=== PATIENT | male | born 1955 ===

== ENCOUNTER 2024-08-07 20:20 | Observation (INO) ==
[2024-08-07] MEDS: SODIUM CHLORIDE 0.9% 1,000 ML IV ONE (20:50)
[2024-08-07 20:57] LABS: iSTAT Art Bld Gas Base Excess 0.0 meg/L (-9-1.8)
--- NOTE | 2024-08-07 21:11 | Emergency Department Note ---
History of Present Illness General Chief complaint: Trauma Stated complaint: FALL, ON BLOOD THINNERS, HYPOTENSIVE Time Seen by Provider: 08/07/24 20:21 History of Present Illness Provider complaint: Fall on Eliquis 69-year-old male presents to the emergency department via EMS for fall on Eliquis. Patient was hypotensive. Patient has dementia and does not remember how he fell. Patient is reporting no pain. Home Medications Medication Instructions Recorded Confirmed Type folic acid 1 mg PO DAILY 06/11/24 08/07/24 History metformin 500 mg tablet 500 mg PO BID 06/11/24 08/07/24 History multivitamin 1 cap PO DAILY 06/11/24 08/07/24 History apixaban 5 mg tablet (Eliquis) 5 mg PO BID #60 tabs 07/14/24 08/07/24 Rx aspirin 81 mg tablet,delayed 81 mg PO QAM #30 tabs 07/14/24 08/07/24 Rx release atorvastatin 10 mg tablet 10 mg PO HS #30 tabs 07/14/24 08/07/24 Rx budesonide 0.5 mg/2 mL suspension 0.5 mg (2 mL) NEB BIDR #60 mL 07/14/24 08/07/24 Rx for nebulization ferrous sulfate 325 mg (65 mg 325 mg PO DAILY #30 tabs 07/14/24 08/07/24 Rx iron) tablet (Iron (ferrous sulfate)) formoterol fumarate 20 mcg/2 mL 20 mcg (2 mL) NEB BIDR #60 mL 07/14/24 08/07/24 Rx solution for nebulization (Perforomist) levofloxacin 750 mg tablet 750 mg PO DAILY@1100 #14 tabs 07/14/24 08/07/24 Rx magnesium oxide 400 mg (241.3 mg 400 mg PO QAM #30 tabs 07/14/24 08/07/24 Rx magnesium) tablet metoprolol succinate 25 mg 12.5 mg (1/2 x 25 mg) PO QAM #15 07/14/24 08/07/24 Rx tablet,extended release 24 hr tabs nicotine 7 mg/24 hr daily 1 patch transdermal QAM #14 ea 07/14/24 08/07/24 Rx transdermal patch pantoprazole 40 mg tablet,delayed 40 mg PO QAM #30 tabs 07/14/24 08/07/24 Rx release quetiapine 25 mg tablet 25 mg PO TID #90 tabs 07/14/24 08/07/24 Rx thiamine HCl (vitamin B1) 100 mg 100 mg PO DAILY #30 caps 07/14/24 08/07/24 Rx capsule Allergies Allergy/AdvReac Type Severity Reaction Status Date / Time olanzapine [From Zyprexa] Allergy Rash (Fine Verified 08/07/24 22:40 red, pruritic rash on back) Past Med/Surg History Problem List (Updated 08/07/24 @ 22:41 by Toi Nicholas MD) Fall (Acute) Pneumonia (Acute) Hypoxia (Acute) Pulmonary cavitary lesion Necrotizing pneumonia Pneumothorax on right AMS (altered mental status) Confusion Hypokalemia Acute exacerbation of chronic obstructive pulmonary disease (COPD) Septic shock Other secondary pulmonary hypertension Endotracheally intubated Acute respiratory failure with hypoxia Multifocal pneumonia Acute DVT (deep venous thrombosis) Pulmonary embolism Elevated hemidiaphragm COPD with emphysema Acute metabolic encephalopathy Atrial fibrillation with RVR Tobacco use disorder Pneumonia Sepsis Medical History Short-term memory loss Hypertension Prediabetes Social History Smoking Status: Former smoker Tobacco Type: Cigarettes Cigarettes Per Day: 1.5 packs/day; Hx Alcohol Use: Yes Alcohol type: hard liquor Hx Substance Use: No Preferred Language: [place] Communication Ability: Unable Director Of Physical Security Required: No Beliefs That Will Affect Care: Spiritual Current Living Situation: Spouse Feels Safe at Home: Yes Assistive Devices: None Physical Exam Vital Signs Vital Signs - 24 hr 08/07/24 20:27 08/07/24 20:27 08/07/24 20:29 Temperature 36.8 C 36.8 C Temperature Source Oral Pulse Rate 96 H 96 H 91 H Pulse Rate [Apical] Pulse Rate from SpO2 Sensor Pulse Strength [Bilateral] Normal Respiratory Rate 24 24 Respiratory Effort / Characteristics Respiratory Depth Blood Pressure 95/77 L 95/77 L Blood Pressure [Right Arm] Blood Pressure Mean 83 Blood Pressure Mean [Right Arm] Pulse Oximetry 96 95 Oxygen Delivery Method Room Air Room Air Oxygen Flow Rate 0 Sepsis Recent Fever Within 48 Hours No Sepsis New/Unexplained Change in Mental Status No Sepsis Action Taken by Nursing Physician Notified Oxygen Flow Rate - Titration Pulse Oximetry Post Tiitration 08/07/24 20:30 08/07/24 20:46 08/07/24 21:01 Temperature Temperature Source Pulse Rate 95 H Pulse Rate [Apical] Pulse Rate from SpO2 Sensor Pulse Strength [Bilateral] Respiratory Rate 22 Respiratory Effort / Characteristics Respiratory Depth Blood Pressure 94/58 L 104/61 Blood Pressure [Right Arm] Blood Pressure Mean 68 88 Blood Pressure Mean [Right Arm] Pulse Oximetry 95 100 Oxygen Delivery Method Nasal Cannula Nasal Cannula Oxygen Flow Rate 0 2 Sepsis Recent Fever Within 48 Hours Sepsis New/Unexplained Change in Mental Status Sepsis Action Taken by Nursing Oxygen Flow Rate - Titration 2 Pulse Oximetry Post Tiitration 100 08/07/24 21:33 08/07/24 22:00 Temperature Temperature Source Pulse Rate 87 Pulse Rate [Apical] 76 Pulse Rate from SpO2 Sensor 88 Pulse Strength [Bilateral] Respiratory Rate 23 20 Respiratory Effort / Characteristics Non-Labored Spontaneous Respiratory Depth Normal Blood Pressure 95/73 L Blood Pressure [Right Arm] 115/72 Blood Pressure Mean 80 Blood Pressure Mean [Right Arm] 86 Pulse Oximetry 100 100 Oxygen Delivery Method Nasal Cannula Nasal Cannula Oxygen Flow Rate 2 2 Sepsis Recent Fever Within 48 Hours Sepsis New/Unexplained Change in Mental Status Sepsis Action Taken by Nursing Oxygen Flow Rate - Titration Pulse Oximetry Post Tiitration Primary Survey Airway: Intact Breathing: Diminished breath sounds bilaterally. Circulation: Skin warm, distal pulses 2+, capillary refill less than 2 seconds Disability Pupils: Equal and reactive to light, 2 mm, brisk GCS: 14, E = 4 V=4 M= 6 Motor Function: Moves all extremities. Sensory: No deficits Secondary Survey GEN: Ill-appearing. HEAD: Normocephallic atruamatic EYES: Pupils round reactive to light, conjunctiva clear, extraocular movements intact, no raccoons eyes ENT: no burr's sign, nares patent, oropharynx clear NECK: No JVD, midline trachea, no cervical spine tenderness HEART: Regular rate and rhythm LUNGS: Diminished breath sounds bilaterally. CHEST: Chest wall non-tender, no bruising/deformity ABD: soft, non-tender, no rebound or guarding, MUSC: Pelvis stable. NEURO: CNII-XII grossly intact, no sensory deficits Procedures FAST Exam FAST Exam 1: Fluid in Morison's pouch: No Fluid in Splenorenal Junction: No Fluid around bladder, Transverse view: No Fluid around bladder, Sagittal view: No Fluid in Pericardial Sac: No Gross Wall Motion Abnormality: No Study normal for this patient: Yes Additional Comments: E-FAST showed no lung sliding on the right. Barcode sign on the right. Lung sliding on the left. Seashore sign on the left. Course Course 2009:Trauma alert activated. 2020: The patient was evaluated in room B1. A complete history and physical exam was performed Cardiac monitoring: An order was placed for continuous cardiac monitoring. The monitor shows a rate of 90 with sinus rhythm interpreted by me Patient hypotensive. IV fluids ordered for the patient. Diminished breath sounds bilaterally. Bedside ultrasound shows barcode sign on the right. Patient hypoxic on room air. Supplemental oxygen was applied via nasal cannula. Chest x-ray shows a bleb/cavitary lesion of the right. When compared to previous chest x-ray this is also present from July 10, 2024. This is not thought to be a pneumothorax at the time but will obtain CT. Given the patient's hypotensive will obtain CT rob scan. 2041: Patient's i-STAT shows elevated creatinine. Will switch to CT scans without contrast. 2046: CT of the head viewed by me shows no ICH. CT of the chest viewed by me shows large right-sided bleb, not definite pneumothorax when I viewed the patient's CTs and CT control room. There does appear to be right-sided pneumonia on the CT. CT abdomen pelvis did not show any free fluid when I reviewed the CT. 2237: Vital signs stable on supplemental oxygen. Imaging shows no acute traumatic injury. Imaging does show pneumonia. Labs show white blood cell count of 12.81 ABG is unremarkable creatinine 1.67 up from 0.72 at the beginning of the month. Patient being treated with IV fluids and blood pressure improving with IV fluids. Patient treated with broad-spectrum antibiotics Zosyn and vancomycin. [facility]. Administ[facility] Medications Discontinued Medications Sodium Chloride (Nss) 1,000 mls @ 999 mls/hr IV .Q1H1M ONE Stop: 08/07/24 22:07 Last Infusion: 08/07/24 21:59 Dose: Infused Documented By: Admin: 08/07/24 20:50 Dose: 999 mls/hr Documented By: JONATHAN Piperacillin Sod/Tazobactam Sod (Zosyn) 4.5 gm in 120 mls @ 240 mls/hr IV NOW ONE Stop: 08/07/24 22:15 Last Admin: 08/07/24 22:09 Dose: 240 mls/hr Documented By: NBA Critical Care Time Critical Care Time: Yes Total Critical Care Time: 40 I have personally spent greater than 40 minutes of critical care time in the direct management of this patient. This includes bedside care, interpretation of diagnostic studies, and testing, discussion with consultants, patient, and family members, and other required patient management activities. This 40 minutes is in excess of all separately billable procedures. Medical Decision Making Laboratory Data Attestation: I reviewed the patient's lab results. 08/07/24 20:35 08/07/24 20:35 Lab Results 08/07/24 08/07/24 08/07/24 Range/Units 20:35 20:45 21:30 WBC 12.81 H (4.8-10.8) K/ul RBC 4.02 L (4.70-6.10) M/uL Hgb 12.2 L (14.0-18.0) g/dl POC Hgb 11.6 L (14.0-18.0) g/dl Hct 37.0 L (42.0-52.0) % POC Hct 34 L (42-52) % MCV 92.0 (80.0-100.0) fL MCH 30.3 (25.0-34.0) pg MCHC 33.0 (32.0-36.0) g/dL RDW Std Deviation 48.3 H (36.4-46.3) fL RDW Coeff of Johnny 14.3 (11.5-14.5) % Plt Count 226 (130-400) K/uL MPV 9.8 (9.4-12.4) fL Immature Gran % (Auto) 0.4 % Neut % (Auto) 82.3 % Lymph % (Auto) 10.8 % Whitley % (Auto) 5.5 % Eos % (Auto) 0.5 % Baso % (Auto) 0.5 % Neut # (Auto) 10.55 H (1.40-6.50) K/uL Lymph # (Auto) 1.38 (1.20-3.40) K/uL Whitley # (Auto) 0.70 H (0.11-0.59) K/uL Eos # (Auto) 0.06 (0.00-0.50) K/uL Baso # (Auto) 0.07 (0.00-0.20) K/uL Immature Gran # (Auto) 0.05 (0.01-0.20) K/uL PT 12.0 (9.0-12.0) Seconds INR 1.1 (0.9-1.1) APTT 28 (21-31) Seconds PTT Ratio 1.0 POC pH 7.41 (7.35-7.45) POC pCO2 38 (35-46) mmHg POC pO2 120 H (80-95) mmHg POC HCO3 24 (19-24) maria eugenia/L POC Total CO2 25 (24-31) mmol/L POC Base Excess 0.0 (-9-1.8) maria eugenia/L POC ABG O2 Sat 99.0 H (90-95) % POC Sodium 137 (135-144) mmol/L Sodium 137 (136-145) mmol/L POC Potassium 3.9 (3.3-5.0) mmol/L Potassium 4.1 (3.5-5.1) mmol/L Chloride 99 (98-107) mmol/L Carbon Dioxide 27 (21-32) mmol/L Anion Gap 11 (3-11) BUN 29 H (6-23) mg/dl Creatinine 1.67 H (0.6-1.4) mg/dl Est Cr Clr Drug Dosing 39.0 ml/min eGFR 43.49 BUN/Creatinine Ratio 17.4 (10-20) Glucose 100 H (70-99(Fasting)) mg/dl Lactate 1.4 (0.4-2.0) mmol/L Calcium 9.3 (8.6-10.3) mg/dl Total Bilirubin 1.1 H (0.2-1.0) mg/dl AST 14 (13-39) U/L ALT 6 L (7-52) U/L Alkaline Phosphatase 52 (34-104) U/L Ammonia 18.0 (18-72) umol/L Total Creatine Kinase 22 L (30-223) U/L Troponin I High Sens 8.1 (0-20) pg/ml Total Protein 7.1 (6.0-8.3) gm/dl Albumin 3.7 (3.4-5.0) gm/dl Globulin 3.4 (2.5-4.0) gm/dl Albumin/Globulin Ratio 1.1 (0.9-2) Lipase 12 (11-82) U/L Blood Type A Positive Antibody Screen NEGATIVE Imaging Data Attestation: I personally reviewed and interpreted this imaging study as follows: My Impression: Chest x-ray shows a bleb/cavitary lesion of the right. When compared to previous chest x-ray this is also present from July 10, 2024. CT of the head viewed by nv shows no ICH. CT of the chest viewed by nv shows large right-sided bleb, not definite pneumothorax when I viewed the patient's CTs and CT control room. There does appear to be right-sided pneumonia on the CT. CT abdomen pelvis did not show any free fluid when I reviewed the CT. Radiologist's Impression: Chest X-Ray 08/07/24 20:27 Exam(s): XR CXR 1 VIEW EXAM: XR Chest, 1 View CLINICAL HISTORY: Reason for exam: Trauma. TECHNIQUE: Frontal view of the chest. COMPARISON: Chest radiograph on 07/22/2024 FINDINGS: Hardware: None. Lungs/pleura: Large bulla in the right upper chest. Adjacent atelectasis or scarring. Opacities in the lower lungs. No pleural effusion or pneumothorax. Heart/mediastinum: Normal. No cardiomegaly. Soft tissues: Unremarkable. Bones: No acute fracture. Upper abdomen: Normal. IMPRESSION: 1. Large bulla in the right upper chest. Adjacent atelectasis or scarring. 2. Opacities in the lower lungs, concerning for atelectasis versus infectious/inflammatory process. Electronically signed by: Cristobal Espinosa M.D. 08/07/24 22:24 PM Pelvis X-Ray 08/07/24 20:27 Exam(s): XR PELVIS, 1-2 views EXAM: XR Pelvis, 1 or 2 Views CLINICAL HISTORY: Reason for exam: Trauma. TECHNIQUE: Frontal view of the pelvis. COMPARISON: None FINDINGS: Bones/joints: No displaced fracture or dislocation identified. Mild degenerative changes of the hips. Degenerative changes of the lower lumbar spine. No bony lesion. Soft tissues: Normal. No radiopaque foreign body identified. IMPRESSION: No displaced fracture or dislocation identified. Electronically signed by: Cristobal Espinosa M.D. 08/07/24 22:[address] 08/07/24 20:28 Exam(s): CT C SPINE EXAM: CT Cervical Spine Without Intravenous Contrast CLINICAL HISTORY: Reason for exam: Trauma. TECHNIQUE: Axial computed tomography images of the cervical spine without intravenous contrast. CTDI is 7.43 mGy and DLP is 1680.19 mGy-cm. Automated exposure control was utilized for the study. A dose lowering technique was utilized adhering to the principles of ALARA. COMPARISON: None FINDINGS: Bones: Normal alignment. No acute fracture or bony lesion. Old fracture deformity of the T1 spinous process. Disc spaces: No subluxation. Degenerative changes of the spine. Soft tissues: Normal. Other: Small amount of fluid in the right mastoid air cells. Atherosclerotic changes of the vasculature. Please see accompanying CT chest for further details. IMPRESSION: No acute traumatic abnormality in the cervical spine. Electronically signed by: Cristobal Espinosa M.D. 08/07/24 21:[address] 08/07/24 20:28 Exam(s): CT HEAD Without Contrast EXAM: CT Head Without Intravenous Contrast CLINICAL HISTORY: Reason for exam: trauma. TECHNIQUE: Axial computed tomography images of the head/brain without intravenous contrast. CTDI is 7.43 mGy and DLP is 1680.19 mGy-cm. Automated exposure control was utilized for the study. A dose lowering technique was utilized adhering to the principles of ALARA. COMPARISON: CT head on 06/11/2024. MRI brain on 06/12/2024. FINDINGS: Brain: No acute infarct or hemorrhage identified. No extra-axial fluid collection. No mass effect or midline shift. Scattered areas of hypoattenuation in the supratentorial white matter likely represent chronic small vessel ischemic changes. Ventricles and sulci: Prominence of the ventricles and sulci is likely secondary to cerebral volume loss. Bones: Normal. No bony lesion or acute fracture. Subcutaneous tissues: Normal. Sinuses: Normal. No air-fluid levels or mucosal thickening. Mastoid air cells: Normal. Orbits: Grossly unremarkable. Other: Atherosclerotic calcifications in the intracranial vasculature. IMPRESSION: 1. No acute intracranial abnormality. 2. Chronic small vessel ischemic changes and cerebral volume loss. Electronically signed by: Cristobal Espinosa M.D. 08/07/24 21:33 PM Abdomen/Pelvis CT 08/07/24 20:42 Exam(s): CT ABDOMEN + PELVIS Without Contrast EXAM: CT Abdomen and Pelvis Without Intravenous Contrast CLINICAL HISTORY: Reason for exam: trauma. TECHNIQUE: Axial computed tomography images of the abdomen and pelvis without intravenous contrast. CTDI is 7.43 mGy and DLP is 1680.19 mGy-cm. Automated exposure control was utilized for the study. A dose lowering technique was utilized adhering to the principles of ALARA. COMPARISON: None FINDINGS: Lung bases: Please see accompanying CT chest for further details. Mediastinum: Large hiatal hernia containing the stomach and portions of small bowel and colon. ABDOMEN: Liver: Unremarkable. Gallbladder and bile ducts: Cholelithiasis. No ductal dilation. Pancreas: Unremarkable. No ductal dilation. Spleen: Unremarkable. No splenomegaly. Adrenals: Unremarkable. No mass. Kidneys and ureters: Unremarkable. No hydronephrosis or obstructing ureteral stone. Stomach and bowel: Unremarkable. No mucosal thickening. No bowel obstruction or inflammation. PELVIS: Appendix: Normal appendix. Bladder: Unremarkable. No stones. Reproductive: Calcifications in the prostate. ABDOMEN and PELVIS: Intraperitoneal space: Unremarkable. No free air. No significant fluid collection. Bones/joints: Degenerative changes of the spine. No acute fracture. No dislocation. Soft tissues: Unremarkable. Vasculature: Atherosclerotic changes of the vasculature. No abdominal aortic aneurysm. Lymph nodes: Unremarkable. No enlarged lymph nodes. IMPRESSION: 1. Cholelithiasis. 2. Large hiatal hernia containing the stomach and portions of small bowel and colon. 3. No acute traumatic abnormality identified. Electronically signed by: Cristobal Espinosa M.D. 08/07/24 21:[address] 08/07/24 20:42 Exam(s): CT CHEST Without Contrast EXAM: CT Chest Without Intravenous Contrast CLINICAL HISTORY: Reason for exam: trauma. TECHNIQUE: Axial computed tomography images of the chest without intravenous contrast. CTDI is 7.43 mGy and DLP is 1680.19 mGy-cm. Automated exposure control was utilized for the study. A dose lowering technique was utilized adhering to the principles of ALARA. COMPARISON: CT chest on 07/22/2024 FINDINGS: Lungs: Patchy ground-glass opacities and reticulonodular densities in the left lung and patchy ground-glass opacities and densities in the right lung, concerning for infectious/inflammatory process. Emphysematous changes with large bulla in the right lung. Pleural space: Unremarkable. No significant effusion. No pneumothorax. Heart: Coronary artery calcifications. No cardiomegaly. No significant pericardial effusion. Mediastinum: Large hiatal hernia containing the entire stomach and portions of small bowel and colon. Nonspecific mildly prominent mediastinal lymph nodes. Bones/joints: Degenerative changes of the spine. No acute fracture. Soft tissues: Unremarkable. Vasculature: Atherosclerotic changes in the aorta. No aortic aneurysm. Lymph nodes: See above. IMPRESSION: 1. Patchy ground-glass opacities and reticulonodular densities in the left lung and patchy ground-glass opacities and densities in the right lung, concerning for infectious/inflammatory process. 2. Large hiatal hernia containing the entire stomach and portions of small bowel and colon. 3. Emphysematous changes with large bulla in the right lung. 4. No definite acute traumatic abnormality. Electronically signed by: Cristobal Espinosa M.D. 08/07/24 21:26 PM ECG Data Attestation: I personally reviewed and interpreted this ECG as follows: Rate (beats per minute): 91 Rhythm: + normal sinus ECG Intervals/blocks: + Normal QRS, + Normal MO and + Normal QT-c ECG ST segments: + Normal ST segments MDM Narrative 2009:Trauma alert activated. 2020: The patient was evaluated in room B1. A complete history and physical exam was performed Cardiac monitoring: An order was placed for continuous cardiac monitoring. The monitor shows a rate of 90 with sinus rhythm interpreted by me Patient hypotensive. IV fluids ordered for the patient. Diminished breath sounds bilaterally. Bedside ultrasound shows barcode sign on the right. Patient hypoxic on room air. Supplemental oxygen was applied via nasal cannula. Chest x-ray shows a bleb/cavitary lesion of the right. When compared to previous chest x-ray this is also present from July 10, 2024. This is not thought to be a pneumothorax at the time but will obtain CT. Given the patient's hypotensive will obtain CT rob scan. 2041: Patient's i-STAT shows elevated creatinine. Will switch to CT scans without contrast. 2046: CT of the head viewed by nv shows no ICH. CT of the chest viewed by nv shows large right-sided bleb, not definite pneumothorax when I viewed the patient's CTs and CT control room. There does appear to be right-sided pneumonia on the CT. CT abdomen pelvis did not show any free fluid when I reviewed the CT. 2237: Vital signs stable on supplemental oxygen. Imaging shows no acute traumatic injury. Imaging does show pneumonia. Labs show white blood cell count of 12.81 ABG is unremarkable creatinine 1.67 up from 0.72 at the beginning of the month. Patient being treated with IV fluids and blood pressure improving with IV fluids. Patient treated with broad-spectrum antibiotics Zosyn and vancomycin. Patient be admitted to the [facility] hospitalist team. Impression & Plan Hypoxia, Pneumonia, Fall Discharge Plan Visit Data Chief Complaint: Trauma Stated Complaint: FALL, ON BLOOD THINNERS, HYPOTENSIVE ED Provider: Toi Nicholas Discharge Problem: Hypoxia, Pneumonia, Fall Patient Disposition: Admitted As Inpatient Condition: Serious Forms Stand Alone Forms: My [facility] Prescriptions Prescriptions: No Action folic acid tablet 1 mg PO DAILY multivitamin Capsule 1 cap PO DAILY metformin 500 mg Tablet 500 mg PO BID levofloxacin 750 mg Tablet 750 mg PO DAILY@1100 Qty: 14 0RF formoterol fumarate [Perforomist] 20 mcg/2 mL Solution For Nebulization 20 mcg NEB BIDR Qty: 60 0RF nicotine 7 mg/24 hr Patch 24 Hour 1 patch transdermal QAM Qty: 14 0RF Eliquis 5 mg Tablet 5 mg PO BID Qty: 60 0RF quetiapine 25 mg Tablet 25 mg PO TID Qty: 90 0RF aspirin 81 mg Tablet,Delayed Release (Dr/Ec) 81 mg PO QAM Qty: 30 0RF magnesium oxide 400 mg (241.3 mg magnesium) Tablet 400 mg PO QAM Qty: 30 0RF pantoprazole 40 mg Tablet,Delayed Release (Dr/Ec) 40 mg PO QAM Qty: 30 0RF budesonide 0.5 mg/2 mL Suspension For Nebulization 0.5 mg NEB BIDR Qty: 60 0RF thiamine HCl (vitamin B1) 100 mg capsule 100 mg PO DAILY Qty: 30 0RF atorvastatin 10 mg tablet 10 mg PO HS Qty: 30 0RF ferrous sulfate [Iron (ferrous sulfate)] 325 mg (65 mg iron) Tablet 325 mg PO DAILY Qty: 30 0RF metoprolol succinate 25 mg tablet extended release 24 hr 12.5 mg PO QAM Qty: 15 0RF Referrals Referrals: Yariel Morales DO [Primary Care Provider] -
[2024-08-07 21:15] LABS: Alanine Aminotransferase 6.0 U/L (7-52); Albumin Globulin Ratio 1.1 (0.9-2); Alkaline Phosphatase 52.0 U/L (34-104); Anion Gap 11.0 (3-11); Bilirubin,Total 1.1 mg/dl (0.2-1.0); Blood Urea Nitrogen 29.0 mg/dl (6-23); Calcium 9.3 mg/dl (8.6-10.3); Carbon Dioxide 27.0 mmol/L (21-32); Chloride 99.0 mmol/L (98-107); Creatine Kinase 22.0 U/L (30-223); Creatinine Clr Calc Pharmacy 39.0 ml/min; Globulin 3.4 gm/dl (2.5-4.0); Glucose 100.0 mg/dl (70-99(Fasting)); Hematocrit (blood only) 37.0 % (42.0-52.0); Hemoglobin 12.2 g/dl (14.0-18.0); Immature Granulocytes # (auto) 0.05 K/uL (0.01-0.20); Immature Granulocytes % (auto) 0.4 %; Lipase 12.0 U/L (11-82); Mean Corpuscular Hemoglobin 30.3 pg (25.0-34.0); Mean Corpuscular Volume 92.0 fL (80.0-100.0); Platelet Count 226 K/uL (130-400); Potassium 4.1 mmol/L (3.5-5.1); RDW Standard Deviation 48.3 fL (36.4-46.3); Red Blood Count 4.02 M/uL (4.70-6.10); Sodium 137.0 mmol/L (136-145); Total Protein 7.1 gm/dl (6.0-8.3); White Blood Count 12.81 K/ul (4.8-10.8)
--- NOTE | 2024-08-07 21:28 | CT Scan Report ---
Exam(s): CT CHEST Without Contrast EXAM: CT Chest Without Intravenous Contrast CLINICAL HISTORY: Reason for exam: trauma. TECHNIQUE: Axial computed tomography images of the chest without intravenous contrast. CTDI is 7.43 mGy and DLP is 1680.19 mGy-cm. Automated exposure control was utilized for the study. A dose lowering technique was utilized adhering to the principles of ALARA. COMPARISON: CT chest on 07/22/2024 FINDINGS: Lungs: Patchy ground-glass opacities and reticulonodular densities in the left lung and patchy ground-glass opacities and densities in the right lung, concerning for infectious/inflammatory process. Emphysematous changes with large bulla in the right lung. Pleural space: Unremarkable. No significant effusion. No pneumothorax. Heart: Coronary artery calcifications. No cardiomegaly. No significant pericardial effusion. Mediastinum: Large hiatal hernia containing the entire stomach and portions of small bowel and colon. Nonspecific mildly prominent mediastinal lymph nodes. Bones/joints: Degenerative changes of the spine. No acute fracture. Soft tissues: Unremarkable. Vasculature: Atherosclerotic changes in the aorta. No aortic aneurysm. Lymph nodes: See above. IMPRESSION: 1. Patchy ground-glass opacities and reticulonodular densities in the left lung and patchy ground-glass opacities and densities in the right lung, concerning for infectious/inflammatory process. 2. Large hiatal hernia containing the entire stomach and portions of small bowel and colon. 3. Emphysematous changes with large bulla in the right lung. 4. No definite acute traumatic abnormality. Electronically signed by: Cristobal Espinosa M.D. 08/07/24 21:26 PM
--- NOTE | 2024-08-07 21:32 | CT Scan Report ---
Exam(s): CT ABDOMEN + PELVIS Without Contrast EXAM: CT Abdomen and Pelvis Without Intravenous Contrast CLINICAL HISTORY: Reason for exam: trauma. TECHNIQUE: Axial computed tomography images of the abdomen and pelvis without intravenous contrast. CTDI is 7.43 mGy and DLP is 1680.19 mGy-cm. Automated exposure control was utilized for the study. A dose lowering technique was utilized adhering to the principles of ALARA. COMPARISON: None FINDINGS: Lung bases: Please see accompanying CT chest for further details. Mediastinum: Large hiatal hernia containing the stomach and portions of small bowel and colon. ABDOMEN: Liver: Unremarkable. Gallbladder and bile ducts: Cholelithiasis. No ductal dilation. Pancreas: Unremarkable. No ductal dilation. Spleen: Unremarkable. No splenomegaly. Adrenals: Unremarkable. No mass. Kidneys and ureters: Unremarkable. No hydronephrosis or obstructing ureteral stone. Stomach and bowel: Unremarkable. No mucosal thickening. No bowel obstruction or inflammation. PELVIS: Appendix: Normal appendix. Bladder: Unremarkable. No stones. Reproductive: Calcifications in the prostate. ABDOMEN and PELVIS: Intraperitoneal space: Unremarkable. No free air. No significant fluid collection. Bones/joints: Degenerative changes of the spine. No acute fracture. No dislocation. Soft tissues: Unremarkable. Vasculature: Atherosclerotic changes of the vasculature. No abdominal aortic aneurysm. Lymph nodes: Unremarkable. No enlarged lymph nodes. IMPRESSION: 1. Cholelithiasis. 2. Large hiatal hernia containing the stomach and portions of small bowel and colon. 3. No acute traumatic abnormality identified. Electronically signed by: Cristobal Espinosa M.D. 08/07/24 21:31 PM
--- NOTE | 2024-08-07 21:34 | CT Scan Report ---
Exam(s): CT HEAD Without Contrast EXAM: CT Head Without Intravenous Contrast CLINICAL HISTORY: Reason for exam: trauma. TECHNIQUE: Axial computed tomography images of the head/brain without intravenous contrast. CTDI is 7.43 mGy and DLP is 1680.19 mGy-cm. Automated exposure control was utilized for the study. A dose lowering technique was utilized adhering to the principles of ALARA. COMPARISON: CT head on 06/11/2024. MRI brain on 06/12/2024. FINDINGS: Brain: No acute infarct or hemorrhage identified. No extra-axial fluid collection. No mass effect or midline shift. Scattered areas of hypoattenuation in the supratentorial white matter likely represent chronic small vessel ischemic changes. Ventricles and sulci: Prominence of the ventricles and sulci is likely secondary to cerebral volume loss. Bones: Normal. No bony lesion or acute fracture. Subcutaneous tissues: Normal. Sinuses: Normal. No air-fluid levels or mucosal thickening. Mastoid air cells: Normal. Orbits: Grossly unremarkable. Other: Atherosclerotic calcifications in the intracranial vasculature. IMPRESSION: 1. No acute intracranial abnormality. 2. Chronic small vessel ischemic changes and cerebral volume loss. Electronically signed by: Cristobal Espinosa M.D. 08/07/24 21:33 PM
--- NOTE | 2024-08-07 21:36 | CT Scan Report ---
Exam(s): CT C SPINE EXAM: CT Cervical Spine Without Intravenous Contrast CLINICAL HISTORY: Reason for exam: Trauma. TECHNIQUE: Axial computed tomography images of the cervical spine without intravenous contrast. CTDI is 7.43 mGy and DLP is 1680.19 mGy-cm. Automated exposure control was utilized for the study. A dose lowering technique was utilized adhering to the principles of ALARA. COMPARISON: None FINDINGS: Bones: Normal alignment. No acute fracture or bony lesion. Old fracture deformity of the T1 spinous process. Disc spaces: No subluxation. Degenerative changes of the spine. Soft tissues: Normal. Other: Small amount of fluid in the right mastoid air cells. Atherosclerotic changes of the vasculature. Please see accompanying CT chest for further details. IMPRESSION: No acute traumatic abnormality in the cervical spine. Electronically signed by: Cristobal Espinosa M.D. 08/07/24 21:35 PM
[2024-08-07 21:41] LABS: INR 1.1 (0.9-1.1); Partial Thromboplastin Time 28 Seconds (21-31); Prothrombin Time 12.0 Seconds (9.0-12.0)
[2024-08-07] MEDS ORDERED: VANCOMYCIN CONSULT ACTIVE PRN (21:46)
[2024-08-07] MEDS: PIPERACILLIN/TAZOBACTAM 4.5 GM/120 ML BAG IV ONE (22:09)
--- NOTE | 2024-08-07 22:17 | History & Physical Report ---
Date of Service August 07, 2024 Assessment & Plan (1) Pneumonia: (2) Hypoxia: (3) Hypotension: (4) GEREMIAS (acute kidney injury): (5) Fall: Plan Patient is a 69-year-old male with a past medical history of HTN, HLD, type II DM, tobacco use, alcohol use disorder, dementia, recent PE/DVT. Patient recently had a prolonged hospitalization from 06/11 to 07/14 due to septic shock from Acinetobacter pneumonia, he was ventilator dependent requiring intubation and pressors in the ICU. He clinically improved and was discharged on Augmentin and Levaquin to be completed 07/28. Patient presented today from [facility] dementia unit after a ground-level fall. Imaging revealed persistent pneumonia. Patient is hypotensive and has an GEREMIAS. #Pneumonia/Hypoxia - hx Of multifocal necrotizing PNA with cavitations s/p bronchoscopy which showed pansensitive Acinetobacter. Mild leukocytosis, WBC 12.81 with neutrophil predominance. Procalcitonin and lactate negative. Chest CT interpreted as patchy groundglass opacities and densities in both left lung and right lung concerning for infectious/inflammatory process. CXR looks improved from 07/10 however questionable. Requiring 2L NC at time of admission. Given Zosyn plus vancomycin in ED; will empirically cover with Zosyn for 48 hours MRSA swab ordered, continue MRSA coverage of positive Incentive spirometry if patient able to follow commands oxygen as needed with O2 goal greater than 92%, wean as tolerated Blood cultures obtained prior to IV ABX Sputum cultures ordered #hypotension - 2/2 hypovolemia with dehydration. As low as 94/58, improving with IVF. - IVF as below - continue metoprolol with holding precautions - appears patient was previously on lisinopril however currently not on medication list #GEREMIAS - likely secondary to renal hypoperfusion with hypotension and dehydration. Cr increased from 0.72 to 1.67, BUN elevated to 29 indicating pre-renal cause. - UA ordered - given 1L NSS in ed; continue IVF with lr @ 125 ml/hr x 2 l - Hold nephrotoxic agents - holding metformin - promote oral hydration - trend BMP and mag #fall - reported GLF, patient does not remember. Diagnostic imaging negative. On Eliquis, Hgb at baseline. Will hold Eliquis x 24 hours Neurochecks q4h - PT/OT ordered - fall and aspiration precautions - trend H&H #Dementiaoriented to self only, appears to be patient's baseline Haldol 2 Mg IM given on admission as patient agitated and ripped out IVs, still needing IV ABX Continue home Seroquel in a.m. Melatonin as needed, promote good sleep-wake cycles #Hx VTEPE/DVT with recent admission. Holding Eliquis x 24 hours with above, has been on for over 1 month SCDs ordered #A-fibnew diagnosis during recent admission. Electrolytes stable. Holding Eliquis as above Continue metoprolol with holding precautions EKG ordered #DMholding metformin as above. Loose SSI ordered. #HFpEFmost recent EF 45 to 50%, RV systolic function moderately reduced, mild to moderate TR, pulmonary hypertension. Recommended to have repeat echo as outpatient when pneumonia resolved Continue metoprolol with holding precautions #History of CVAseen on brain MRI during recent admission. Continue baby aspirin and atorvastatin #tobacco usecontinue nicotine patch #COPDcontinue home inhalers #Alcohol use disorder - continue thiamine VTE ppx: SCDs, holding Eliquis as above x 24 hours Dispo: med/telemetry Admission and Anticipated Discharge Date Admission Date: 08/07/24 History of Present Illness Chief Complaint: trauma Primary Care Provider: Yariel Morales DO Patient is a 69-year-old male with a past medical history of HTN, HLD, type II DM, tobacco use, alcohol use disorder, dementia, recent PE/DVT. Patient recently had a prolonged hospitalization from 06/11 to 07/14 due to septic shock from actinobacter pneumonia, he was ventilator dependent requiring intubation and pressors in the ICU. He clinically improved and was discharged on Augmentin and Levaquin to be completed 07/28. Patient presented today from [facility] dementia unit after a ground-level fall. Imaging revealed persistent pneumonia. Patient is hypotensive and has an GEREMIAS. Patient seen at bedside. He is oriented to self only, it appears this is patient's baseline. He does not remember the fall however denies any pain. Unable to obtain further ROS. patient became agitated and ripped out IV's, still needs IV abx - IM Haldol ordered. Allergies Allergy/AdvReac Type Severity Reaction Status Date / Time olanzapine [From Zyprexa] Allergy Rash (Fine Verified 08/07/24 22:40 red, pruritic rash on back) Home Medications Medication Instructions Recorded Confirmed Type folic acid 1 mg PO DAILY 06/11/24 08/07/24 History metformin 500 mg tablet 500 mg PO BID 06/11/24 08/07/24 History multivitamin 1 cap PO DAILY 06/11/24 08/07/24 History apixaban 5 mg tablet (Eliquis) 5 mg PO BID #60 tabs 07/14/24 08/07/24 Rx aspirin 81 mg tablet,delayed 81 mg PO QAM #30 tabs 07/14/24 08/07/24 Rx release atorvastatin 10 mg tablet 10 mg PO HS #30 tabs 07/14/24 08/07/24 Rx budesonide 0.5 mg/2 mL suspension 0.5 mg (2 mL) NEB BIDR #60 mL 07/14/24 08/07/24 Rx for nebulization ferrous sulfate 325 mg (65 mg 325 mg PO DAILY #30 tabs 07/14/24 08/07/24 Rx iron) tablet (Iron (ferrous sulfate)) formoterol fumarate 20 mcg/2 mL 20 mcg (2 mL) NEB BIDR #60 mL 07/14/24 08/07/24 Rx solution for nebulization (Perforomist) levofloxacin 750 mg tablet 750 mg PO DAILY@1100 #14 tabs 07/14/24 08/07/24 Rx magnesium oxide 400 mg (241.3 mg 400 mg PO QAM #30 tabs 07/14/24 08/07/24 Rx magnesium) tablet metoprolol succinate 25 mg 12.5 mg (1/2 x 25 mg) PO QAM #15 07/14/24 08/07/24 Rx tablet,extended release 24 hr tabs nicotine 7 mg/24 hr daily 1 patch transdermal QAM #14 ea 07/14/24 08/07/24 Rx transdermal patch pantoprazole 40 mg tablet,delayed 40 mg PO QAM #30 tabs 07/14/24 08/07/24 Rx release quetiapine 25 mg tablet 25 mg PO TID #90 tabs 07/14/24 08/07/24 Rx thiamine HCl (vitamin B1) 100 mg 100 mg PO DAILY #30 caps 07/14/24 08/07/24 Rx capsule Past Med/Surg History Problem List (Updated 08/07/24 @ 23:27 by Dona Gallardo PA-C) GEREMIAS (acute kidney injury) Hypotension Fall (Acute) Pneumonia (Acute) Hypoxia (Acute) Pulmonary cavitary lesion Necrotizing pneumonia Pneumothorax on right AMS (altered mental status) Confusion Hypokalemia Acute exacerbation of chronic obstructive pulmonary disease (COPD) Septic shock Other secondary pulmonary hypertension Endotracheally intubated Acute respiratory failure with hypoxia Multifocal pneumonia Acute DVT (deep venous thrombosis) Pulmonary embolism Elevated hemidiaphragm COPD with emphysema Acute metabolic encephalopathy Atrial fibrillation with RVR Tobacco use disorder Pneumonia Sepsis Medical History Short-term memory loss Hypertension Prediabetes Social History Smoking Status: Former smoker Tobacco Type: Cigarettes Cigarettes Per Day: 1.5 packs/day; Hx Alcohol Use: Yes Alcohol type: hard liquor Hx Substance Use: No Preferred Language: Spanish Communication Ability: Unable [employer] Required: No Beliefs That Will Affect Care: Spiritual Current Living Situation: Spouse Feels Safe at Home: Yes Assistive Devices: None Review of Systems Review of Systems: unable to obtain given dementia Physical Exam Physical Exam: The patient is awake, Oriented to self only, well developed and well nourished, normocephalic and atraumatic, in no acute distress. Non-toxic appearing. HEENT- EOMI, mucous membranes dry. Hearing grossly intact. Heart-normal S1 and S2. No murmurs, rubs or gallops. Lungs- decreased bilaterally, no respiratory distress, no accessory muscle use. Abdomen-normal bowel sounds and soft. No ascites noted. Non-tender. Extremities- no clubbing, cyanosis, or edema. Rheumatologic-normal range of motion. Results & Data Results & Data Vital Signs (Past 12 Hours) Vital Signs Temp Pulse Resp BP Pulse Ox O2 Del Method O2 Flow Rate 08/07/24 21:33 87 23 95/73 L 100 Nasal Cannula 2 08/07/24 21:01 95 H 22 104/61 100 Nasal Cannula 2 08/07/24 20:46 95 Nasal Cannula 0 08/07/24 20:30 94/58 L 08/07/24 20:29 91 H 08/07/24 20:27 36.8 C 96 H 24 95/77 L 95 Room Air 08/07/24 20:27 36.8 C 96 H 24 95/77 L 96 Room Air 0 Laboratory Results reviewed CBC, CMP, PT/INR, VBG, lactate Diagnostic Findings reviewed chest CT, abdomen pelvis CT, head CT, cervical spine CT, pelvis XR, chest XR Medications Administered ED1L NSS bolus, Zosyn plus vancomycin IV ECG Additional Comments: ordered Code Status & VTE Plan Code Status dnr/dni as per recent APC note VTE Prophylaxis Plan VTE Prophylaxis will be ordered: Yes Supervising Physician Co-Signing Physician Notes Patient seen and examined, chart reviewed, case discussed with JHONY Gallardo and agree with the assessment and plan as document above. In brief, patient is a 69-year-old male with history of dementia presenting with a ground-level fall. Patient is on anticoagulation with Eliquis for recently diagnosed PE/DVT. Also with Acinetobacter pneumonia status post intubation mechanical ventilation, status post prolonged antibiotic course which he has since completed 07/28/2024. Borderline low blood pressures in the ER On exam patient is agitated, does not wish me to examine him. Upon my entering the room he pointed it may saying "no!" Skin abrasions dressed, no active bleeding or evidence of secondary infection Moist mucous membranes + S1, S2, regular Equal breath sounds anteriorly Patient did not wish to have an abdominal exam or any remaining exam Labs and images reviewed Assessment/planuncertain if patient has active pneumonia. He does have a white count but has normal procalcitonin. no report history of fever, chills or worsening cough or shortness of breath Will cover empirically with Zosyn for now and follow cultures Neurochecks Hold Eliquis PT/OT Remainder as above PG Care Time/CCT Total # of Minutes Spent Total Time Spent with Patient: Total time spent is greater than 50% in coordination of care (as documented) at patient's floor/unit and/or counseling patient: Coding Level of Care Code 54288 INT INP/OBS CARE 75MIN Diagnoses Pneumonia J18.9 Hypoxia R09.02 Hypotension I95.9 GEREMIAS (acute kidney injury) N17.9 Fall W19.XXXA
--- NOTE | 2024-08-07 22:25 | XRay Report ---
Exam(s): XR CXR 1 VIEW EXAM: XR Chest, 1 View CLINICAL HISTORY: Reason for exam: Trauma. TECHNIQUE: Frontal view of the chest. COMPARISON: Chest radiograph on 07/22/2024 FINDINGS: Hardware: None. Lungs/pleura: Large bulla in the right upper chest. Adjacent atelectasis or scarring. Opacities in the lower lungs. No pleural effusion or pneumothorax. Heart/mediastinum: Normal. No cardiomegaly. Soft tissues: Unremarkable. Bones: No acute fracture. Upper abdomen: Normal. IMPRESSION: 1. Large bulla in the right upper chest. Adjacent atelectasis or scarring. 2. Opacities in the lower lungs, concerning for atelectasis versus infectious/inflammatory process. Electronically signed by: Cristobal Espinosa M.D. 08/07/24 22:24 PM
--- NOTE | 2024-08-07 22:30 | XRay Report ---
Exam(s): XR PELVIS, 1-2 views EXAM: XR Pelvis, 1 or 2 Views CLINICAL HISTORY: Reason for exam: Trauma. TECHNIQUE: Frontal view of the pelvis. COMPARISON: None FINDINGS: Bones/joints: No displaced fracture or dislocation identified. Mild degenerative changes of the hips. Degenerative changes of the lower lumbar spine. No bony lesion. Soft tissues: Normal. No radiopaque foreign body identified. IMPRESSION: No displaced fracture or dislocation identified. Electronically signed by: Cristobal Espinosa M.D. 08/07/24 22:29 PM
[2024-08-07] MEDS: HALOPERIDOL LACTATE 5 MG/ML 1 ML VIAL IM STA (22:56)
[2024-08-08] MEDS: LACTATED RINGER'S 1,000 ML IV SCH (00:39)
[2024-08-08] MEDS ORDERED: GLUCOSE 40% GEL 15 GM TUBE PO PRN (01:22)
[2024-08-08] MEDS ORDERED: MELATONIN 3 MG TAB PO PRN (01:22)
[2024-08-08] MEDS ORDERED: ACETAMINOPHEN 325 MG TAB PO PRN (01:22)
[2024-08-08] MEDS ORDERED: CARBOHYDRATES FOR HYPOGLYCEMIA PO PRN (01:22)
[2024-08-08] MEDS ORDERED: DEXTROSE 50% 50 ML SYRINGE IV PRN (01:22)
[2024-08-08] MEDS ORDERED: GLUCOSE 10 TAB/TUBE PO PRN (01:22)
[2024-08-08] MEDS ORDERED: ONDANSETRON INJ 2 MG/ML 2 ML VIAL IV PRN (01:22)
[2024-08-08] MEDS ORDERED: GLUCAGON FOR INJ 1 MG VIAL SQ PRN (01:22)
[2024-08-08] MEDS: VANCOMYCIN HCL 1,250 MG in SODIUM CHLORIDE 0.9% 500 ML IV ONE (01:48)
[2024-08-08] MEDS ORDERED: VANCOMYCIN CONSULT ACTIVE PRN (03:18)
[2024-08-08] MEDS: PIPERACILLIN/TAZOBACTAM 4.5 GM/100 ML BAG IV SCH (04:29)
[2024-08-08] MEDS: SODIUM CHLORIDE 0.9% 1,000 ML IV SCH (04:29)
[2024-08-08 06:26] LABS: Hematocrit (blood only) 35.4 % (42.0-52.0); Hemoglobin 11.1 g/dl (14.0-18.0); Immature Granulocytes # (auto) 0.06 K/uL (0.01-0.20); Immature Granulocytes % (auto) 0.6 %; Mean Corpuscular Hemoglobin 28.9 pg (25.0-34.0); Mean Corpuscular Volume 92.2 fL (80.0-100.0); Platelet Count 204 K/uL (130-400); RDW Standard Deviation 49.0 fL (36.4-46.3); Red Blood Count 3.84 M/uL (4.70-6.10); White Blood Count 10.70 K/ul (4.8-10.8)
[2024-08-08 06:50] LABS: Alanine Aminotransferase 5.0 U/L (7-52); Albumin Globulin Ratio 1.3 (0.9-2); Alkaline Phosphatase 41.0 U/L (34-104); Anion Gap 8.0 (3-11); Bilirubin,Total 1.0 mg/dl (0.2-1.0); Blood Urea Nitrogen 29.0 mg/dl (6-23); Calcium 8.5 mg/dl (8.6-10.3); Carbon Dioxide 28.0 mmol/L (21-32); Chloride 104.0 mmol/L (98-107); Creatinine Clr Calc Pharmacy 44.7 ml/min; Globulin 2.7 gm/dl (2.5-4.0); Glucose 80.0 mg/dl (70-99(Fasting)); Magnesium 1.4 mg/dl (1.7-2.4); Potassium 3.9 mmol/L (3.5-5.1); Sodium 140.0 mmol/L (136-145); Total Protein 6.1 gm/dl (6.0-8.3)
[2024-08-08 07:03] LABS: Appearance Urine Clear (Clear); Bacteria Urine Automated None Seen (None Seen); Glucose Urine UA Negative (Negative); RBC Urine Automated 0-2 /hpf (0-2)
[2024-08-08] MEDS: FORMOTEROL 20 MCG/2 ML VIAL NEB SCH (07:25)
[2024-08-08] MEDS: FOLIC ACID 1 MG TAB PO SCH (09:01)
[2024-08-08] MEDS: VANCOMYCIN HCL 1,000 MG in SODIUM CHLORIDE 0.9% 250 ML IV SCH (09:01)
[2024-08-08] MEDS: METOPROLOL SUCC 25MG EXT REL TAB PO SCH (09:01)
[2024-08-08] MEDS: MAGNESIUM OXIDE 400 MG TAB PO SCH (09:02)
[2024-08-08] MEDS: FERROUS SULFATE 325 MG TAB PO SCH (09:02)
[2024-08-08] MEDS: THIAMINE HCL 100 MG TAB PO SCH (09:02)
[2024-08-08] MEDS: ASPIRIN 81 MG ECTAB PO SCH (09:02)
[2024-08-08] MEDS: NICOTINE 14 MG/24 HR PATCH TD SCH (09:03)
[2024-08-08] MEDS: INSULIN ASPART PER UNIT CHARGE SC SCH (09:38)
--- NOTE | 2024-08-08 09:39 | Pharmacy Report ---
Pharmacy PK ABX Note - Date of Service August 08, 2024 - Assessment and Plan Assessment 69 year old M receiving vancomycin and Zosyn for treatment of pneumonia. Patient with history of multifocal necrotizing pneumonia. * Pertinent microbiologic data includes: Positive MRSA Nasal Swab, Blood cultures from 08/07 are pending. * Gilson (SCr 1.47 this morning), initially with mild leukocytosis that has since resolved, afebrile. Day # 2 of antimicrobial therapy. Plan Vancomycin * Loading dose: 1250 mg IV x 1 * Maintenance dose: 1000 mg IV every 24 hours * Regimen is predicted to achieve target AUC/STEVEN of 400-600 mg/L.hr * Random level ordered for: 08/10/24 with morning labs. Pharmacy will continue to follow and will adjust dose/frequency as necessary. Thank you. Pharmacy has transitioned to AUC monitoring for vancomycin. AUC/STEVEN is the preferred PK/PD target and is associated with decreased risk of nephrotoxicity compared to traditional trough targets.
[2024-08-08] MEDS: MAGNESIUM SULFATE / D5W 1 GM/100 ML BAG IV SCH (10:04)
--- NOTE | 2024-08-08 19:04 | Hospitalist Progress Note ---
Date of Service August 08, 2024 Assessment & Plan (1) Pneumonia: (2) Hypoxia: (3) Hypotension: (4) GEREMIAS (acute kidney injury): (5) Fall: Plan 68 years old male with PMH of FULL CODE @ home, overweight with BMI 28.2 (height 177.8 cm; weight 89.1 kg), ongoing ETOH abuse with no subsequent diagnosis of ETOH hepatitis or ETOH cirrhosis, and ongoing tobacco abuse with no subsequent diagnosis of COPD, not on home O2 or home steroids, moderate-severe d ementia without behavioral disturbances, and recent PE/DVT. Patient was last hospitalized @ [facility] from 06/11/2024 to 07/14/2024 due to septic shock from Acinetobacter pneumonia, where he was intubated and ventilator dependent with pressor support in the ICU. He clinically improved and was discharged to [facility] on 07/14/2024 on Augmentin and Levaquin to be completed 07/28/2024. Patient suffered a ground-level fall @ [facility] on 07/14/2024. Patient was hypotensive at 95/77 (08/07/2024, 8:27pm) with acute kidney injury with admission creatinine 1.67 mg/dL (08/07/2024, 8:35pm). O2 saturation was 96% on room air (08/07/2024, 8:27pm) with RR 24 breaths/minute at 36.8 degrees Celsius (08/07/2024, 8:27pm). CT chest without IV contrast (08/07/2024, 8:42pm) revealed: 1. Patchy ground-glass opacities and reticulonodular densities in the left lung and patchy ground-glass opacities and densities in the right lung, concerning for infectious/inflammatory process. 2. Large hiatal hernia containing the entire stomach and portions of small bowel and colon. 3. Emphysematous changes with large bulla in the right lung. 4. No definite acute traumatic abnormality. Patient was subsequently admitted to the inpatient hospitalist service @ [facility] on 08/07/2024 with the following diagnoses: #Pneumonia/Hypoxia - hx Of multifocal necrotizing PNA with cavitations s/p bronchoscopy which showed pansensitive Acinetobacter. Mild leukocytosis, WBC 12 .81 with neutrophil predominance. Procalcitonin and lactate negative. Chest CT interpreted as patchy groundglass opacities and densities in both left lung and right lung concerning for infectious/inflammatory process. CXR looks improved from 07/10 however questionable. Requiring 2L NC at time of admission. Given Zosyn plus vancomycin in ED; will empirically cover with Zosyn for 48 hours MRSA swab ordered, continue MRSA coverage of positive Incentive spirometry if patient able to follow commands oxygen as needed with O2 goal greater than 92%, wean as tolerated Blood cultures obtained prior to IV ABX Sputum cultures ordered #hypotension - 2/2 hypovolemia with dehydration. As low as 94/58, improving with IVF. - IVF as below - continue metoprolol with holding precautions - appears patient was previously on lisinopril however currently not on medication list #GEREMIAS - likely secondary to renal hypoperfusion with hypotension and dehydration. Cr increased from 0.72 to 1.67, BUN elevated to 29 indicating pre-renal cause. - UA ordered - given 1L NSS in ed; continue IVF with lr @ 125 ml/hr x 2 l - Hold nephrotoxic agents - holding metformin - promote oral hydration - trend BMP and mag #fall - reported GLF, patient does not remember. Diagnostic imaging negative. On Eliquis, Hgb at baseline. Will hold Eliquis x 24 hours Neurochecks q4h - PT/OT ordered - fall and aspiration precautions - trend H&H #Dementiaoriented to self only, appears to be patient's baseline Haldol 2 Mg IM given on admission as patient agitated and ripped out IVs, still needing IV ABX Continue home Seroquel in a.m. Melatonin as needed, promote good sleep-wake cycles #Hx VTEPE/DVT with recent admission. Holding Eliquis x 24 hours with above, has been on for over 1 month SCDs ordered #A-fibnew diagnosis during recent admission. Electrolytes stable. Holding Eliquis as above Continue metoprolol with holding precautions EKG ordered #DMholding metformin as above. Loose SSI ordered. #HFpEFmost recent EF 45 to 50%, RV systolic function moderately reduced, mild to moderate TR, pulmonary hypertension. Recommended to have repeat echo as outpatient when pneumonia resolved Continue metoprolol with holding precautions #History of CVAseen on brain MRI during recent admission. Continue baby aspirin and atorvastatin #tobacco usecontinue nicotine patch #COPDcontinue home inhalers #Alcohol use disorder - continue thiamine VTE ppx: SCDs, holding Eliquis as above x 24 hours Dispo: med/telemetry Admission and Anticipated Discharge Date Admission Date: August 07, 2024 Subjective Unable to obtain given moderate-severe dementia without behavioral disturbances. Review of Systems Review of Systems: Unable to obtain given moderate-severe dementia without behavioral disturbances. Physical Exam Constitutional: General: Comfortable, cooperative, but incoherent. Wide awake and alert. Pleasantly confused/demented, but not lethargic or obtunded. Patient speaks in complete, fluent, and articulate, but nonsensical sentences without pause, interruption, cough, or wheeze. HEENT: Normocephalic, atraumatic. Pupils equally round and reactive to light. No nystagmus, gaze paresis, anisocoria, miosis, mydriasis, hyphema, scleral injection, conjunctivitis, or pterygium. No otorrhea. No pharyngeal erythema, edema, or discharge. Neck: Supple, no stridor, bruit, goiter, or hepato-jugular reflux. Jugular venous pressure is estimated to be 3 cm above the sternal angle of Irvin, which in turn, is 5 cm above the level of the right atrium; with jugu lar venous pressure estimated to be 8 cm, then, there is no jugular venous distention on 08/08/2024. Lymphatics: No cervical (anterior/posterior), supraclavicular, infraclavicular, axillary, epitrochlear, or inguinal adenopathy. Chest: Symmetric rise and fall with respirations. Non-tender to palpation. Lungs: Clear to auscultation and percussion. No audible ex piratory wheeze, egophony, pectoriloquy, increase in tactile fremitus, or flatness/dullness to percussion at the bases. Heart: RRR. S1 and S2 noted. No S3 or S4 summation gallop. No tripartite friction rub. Grade II/ early systolic murmur @ LLSB without radiation to the carotids, axilla, or back, and which remains invariant in regards to the respiratory cycle. Abdomen: Soft, non-tender, non-distended. No rebound, guarding, Padilla's sign, or organomegaly. Bowel sounds auscultated in all 4 quadrants. Extremities: No clubbing, cyanosis, or edema in upper extremities or lower extremities bilaterally. 2+ pedal pulses bilaterally. Skin: No decubitus ulcer or enanthem. Genito-urinary: No urethral discharge. No bullock catheter. No purewick. Just a dry diaper. Neurology: Alert and oriented in regards to person and place, but not time or situation. No myoclonus, tremors, or tics. Psychiatry: No homicidal ideation. No suicidal ideation. No flat affect; smiles appropriately. Results & Data Results & Data Vital Signs (Past 12 Hours) Vital Signs Temp Pulse Pulse Pulse Resp BP Pulse Ox 08/08/24 16:23 36.4 C 63 20 93/61 L 97 08/08/24 14:31 64 08/08/24 12:15 36.4 C L 63 20 98/66 L 100 08/08/24 10:26 08/08/24 07:55 36.7 C 62 16 93/61 L 99 08/08/24 07:29 88 16 97 08/08/24 07:25 70 O2 Del Method 08/08/24 16:23 Room Air 08/08/24 14:31 08/08/24 12:15 Room Air 08/08/24 10:26 Room Air 08/08/24 07:55 Room Air 08/08/24 07:29 Room Air 08/08/24 07:25 Laboratory Results Abnormal lab results 08/07/24 08/07/24 08/07/24 Range/Units 20:35 20:40 20:45 WBC 12.81 H (4.8-10.8) K/ul RBC 4.02 L (4.70-6.10) M/uL Hgb 12.2 L (14.0-18.0) g/dl POC Hgb 12.6 L 11.6 L (14.0-18.0) g/dl Hct 37.0 L (42.0-52.0) % POC Hct 37 L 34 L (42-52) % MCHC (32.0-36.0) g/dL RDW Std Deviation 48.3 H (36.4-46.3) fL Neut # (Auto) 10.55 H (1.40-6.50) K/uL [place] # (Auto) 0.70 H (0.11-0.59) K/uL POC pO2 120 H (80-95) mmHg POC ABG O2 Sat 99.0 H (90-95) % POC Chloride 100 L (101-112) mmol/L POC BUN 27 H (7-18) mg/dl BUN 29 H (6-23) mg/dl Creatinine 1.67 H (0.6-1.4) mg/dl POC Creatinine 1.8 H (0.6-1.3) mg/dl Glucose 100 H (70-99(Fasting)) mg/dl POC Glucose (other) 100 H (70-99) mg/dl Calcium (8.6-10.3) mg/dl Magnesium (1.7-2.4) mg/dl Total Bilirubin 1.1 H (0.2-1.0) mg/dl ALT 6 L (7-52) U/L Total Creatine Kinase 22 L (30-223) U/L Urine Protein (Negative) Urine Ketones (Negative) Ur Leukocyte Esterase (Negative) Urine WBC (Auto) (0-5) /hpf U Hyaline Cast (Auto) (0-2) /lpf U Epithel Cells (Auto) (0-2) /hpf Nasal Screen MRSA (PCR) (Negative) 08/07/24 08/08/24 08/08/24 Range/Units 22:20 05:38 06:15 WBC (4.8-10.8) K/ul RBC 3.84 L (4.70-6.10) M/uL Hgb 11.1 L (14.0-18.0) g/dl POC Hgb (14.0-18.0) g/dl Hct 35.4 L (42.0-52.0) % POC Hct (42-52) % MCHC 31.4 L (32.0-36.0) g/dL RDW Std Deviation 49.0 H (36.4-46.3) fL Neut # (Auto) 7.53 H (1.40-6.50) K/uL [place] # (Auto) 0.70 H (0.11-0.59) K/uL POC pO2 (80-95) mmHg POC ABG O2 Sat (90-95) % POC Chloride (101-112) mmol/L POC BUN (7-18) mg/dl BUN 29 H (6-23) mg/dl Creatinine 1.47 H (0.6-1.4) mg/dl POC Creatinine (0.6-1.3) mg/dl Glucose (70-99(Fasting)) mg/dl POC Glucose (other) (70-99) mg/dl Calcium 8.5 L (8.6-10.3) mg/dl Magnesium 1.4 L (1.7-2.4) mg/dl Total Bilirubin (0.2-1.0) mg/dl ALT 5 L (7-52) U/L Total Creatine Kinase (30-223) U/L Urine Protein 1+ H (Negative) Urine Ketones 1+ H (Negative) Ur Leukocyte Esterase 1+ H (Negative) Urine WBC (Auto) 6-10 H (0-5) /hpf U Hyaline Cast (Auto) 11-20 H (0-2) /lpf U Epithel Cells (Auto) 6-10 H (0-2) /hpf Nasal Screen MRSA (PCR) Positive A (Negative) PG Care Time/CCT Total # of Minutes Spent Total Time Spent with Patient: Total time spent is greater than 50% in coordination of care (as documented) at patient's floor/unit and/or counseling patient: Coding Level of Care Code 18594 SUB INP/OBS CARE 2/35MIN Diagnoses Pneumonia J18.9 Hypoxia R09.02 Hypotension I95.9 GEREMIAS (acute kidney injury) N17.9 Fall W19.XXXA
[2024-08-08] MEDS: ATORVASTATIN 10 MG TAB PO SCH (20:54)
[2024-08-09] MEDS: DOCUSATE SODIUM 100 MG CAP PO PRN (07:42)
[2024-08-09] MEDS: REMOVE NICODERM PATCH SCH (07:42)
[2024-08-09 08:34] LABS: Hematocrit (blood only) 34.8 % (42.0-52.0); Hemoglobin 11.2 g/dl (14.0-18.0); Immature Granulocytes # (auto) 0.03 K/uL (0.01-0.20); Immature Granulocytes % (auto) 0.3 %; Mean Corpuscular Hemoglobin 29.4 pg (25.0-34.0); Mean Corpuscular Volume 91.3 fL (80.0-100.0); Platelet Count 189 K/uL (130-400); RDW Standard Deviation 49.3 fL (36.4-46.3); Red Blood Count 3.81 M/uL (4.70-6.10); White Blood Count 9.63 K/ul (4.8-10.8)
[2024-08-09 08:49] LABS: Creatinine Clr Calc Pharmacy 59.3 ml/min; Magnesium 1.7 mg/dl (1.7-2.4)
[2024-08-09 10:14] LABS: Chlamydia pneumoniae PCR Not Detected (NotDetected); Coronavirus 229E PCR Not Detected (NotDetected); Coronavirus CoV-2 (COVID19)PCR Not Detected (NotDetected); Coronavirus HKU1 PCR Not Detected (NotDetected); Coronavirus NL63 PCR Not Detected (NotDetected); Coronavirus OC43PCR Not Detected (NotDetected); Human Metapneumovirus PCR Not Detected (NotDetected); Parainfluenza Virus 1 PCR Not Detected (NotDetected); Parainfluenza Virus 2 PCR Not Detected (NotDetected); Parainfluenza Virus 3 PCR Not Detected (NotDetected); Parainfluenza Virus 4 PCR Not Detected (NotDetected); Respiratory Syncytial VirusPCR Not Detected (NotDetected); Rhinovirus/Enterovirus PCR Not Detected (NotDetected)
--- NOTE | 2024-08-09 10:39 | Electrocardiogram Report ---
Test Reason : Blood Pressure : */* mmHG Vent. Rate : 91 BPM Atrial Rate : 91 BPM P-R Int : 168 ms QRS Dur : 84 ms QT Int : 358 ms P-R-T Axes : * 236 99 degrees QTcB Int : 440 ms Suspect arm lead reversal, interpretation assumes no reversal Normal sinus rhythm Right superior axis deviation Septal infarct (cited on or before 27-Jun-2024) Abnormal ECG When compared with ECG of 10-Jul-2024 20:18, QRS axis Shifted left Confirmed by Alex Rowan [id number] on 08/09/2024 10:38:44 AM Referred By: REFERRED SELF Confirmed By: Alex Rowan
[2024-08-09 11:42] VITALS: RESP 16; TEMP 97.4; O2SAT 96
--- NOTE | 2024-08-09 13:20 | Discharge Summary ---
Discharge Summary Date of Service August 09, 2024 Principal Dx & Hospital Course #1 = Principal Diagnosis (1) Pneumonia: (2) Hypoxia: (3) Hypotension: (4) GEREMIAS (acute kidney injury): (5) Fall: Plan 68 years old male with PMH of FULL CODE @ home, overweight with BMI 28.2 (height 177.8 cm; weight 89.1 kg), ongoing ETOH abuse with no subsequent diagnosis of ETOH hepatitis or ETOH cirrhosis, and ongoing tobacco abuse with no subsequent diagnosis of COPD, not on home O2 or home steroids, moderate-severe dementia without behavioral disturbances, and recent PE/DVT. Patient was last hospitalized @ [facility] from 06/11/2024 to 07/14/2024 due to septic shock from rob-sensitive Acinetobacter pneumonia, where he was intubated and ventilator dependent with pressor support in the ICU. He clinically improved and was discharged to [facility] on 07/14/2024 on Augmentin and Levaquin to be completed 07/28/2024. Patient suffered a ground-level fall @ [facility] on 07/14/2024. Patient was hypotensive at 95/77 (08/07/2024, 8:27pm) with acute kidney injury with admission creatinine 1.67 mg/dL (08/07/2024, 8:35pm). O2 saturation was 96% on room air (08/07/2024, 8:27pm) with RR 24 breaths/minute at 36.8 degrees Celsius (08/07/2024, 8:27pm). CT chest without IV contrast (08/07/2024, 8:42pm) revealed: 1. Patchy ground-glass opacities and reticulonodular densities in the left lung and patchy ground-glass opacities and densities in the right lung, concerning for infectious/inflammatory process. 2. Large hiatal hernia containing the entire stomach and portions of small bowel and colon. 3. Emphysematous changes with large bulla in the right lung. 4. No definite acute traumatic abnormality. Patient was subsequently admitted to the inpatient hospitalist service @ [facility] on 08/07/2024 with the following diagnoses: #Pneumonia/Hypoxia - Patient remained afebrile throughout hospitalization with NO hypoxia (cf., admission O2 saturation 94% on room air (08/07/2024, 8:27pm) to discharge O2 saturation 96% on room air (08/09/2024, 11:41am). In addition, initial leukocytosis, as shown below, has RESOLVED. cf., WBC 12.81, N82 L11 M6 E1 B1 (08/07/2024, 8:35pm). cf., WBC 10.70, N70 L19 M7 E3 B1 (08/08/2024, 5:38am). cf., WBC 9.63, N73 L16 M6 E4 B1 (08/09/2024, 8:01am). Procalcitonin and lactic acid levels remained normal throughout hospitalization: cf., procalcitonin #1 0.06 ng/mL (08/07/2024, 8:35pm). cf., procalcitonin #2 0.05 ng/mL (08/08/2024, 9:00am). cf., procalcitonin #3 0.12 ng/mL (08/09/2024, 8:01am). cf., lactic acid #1 1.4 mmol/L (08/07/2024, 9:30pm). cf., lactic acid #2 1.4 mmol/L (08/08/2024, 9:00am). cf., lactic acid #3 1.0 mmol/L (08/09/2024, 8:01am). Hence, the likelihood of acute bacterial pneumonia remains very very low, despite CT chest without IV contrast (08/07/2024, 8:42pm) demonstrating "Patchy ground-glass opacities and reticulonodular densities in the left lung and patchy ground-glass opacities and densities in the right lung, concerning for infectious/inflammatory process." Nonetheless, patient received empirically zosyn 4.5g IV x 1 dose (08/07/2024, 10:09pm), vancomycin 1.25g IV x 1 dose (08/08/2024, 1:48am) in [facility] ER. Patient subsequently received zosyn 4.5g IV q8 x 4 doses (08/08/2024,4:29am, 12:00pm, 8:51pm; 08/09/2024, 4:58am) and vancomycin 1g IV x 1 dose (08/08/2024, 9:01am) in [facility] Med-Surg bed #W256-2. Patient will not continue with empiric antibiotics on hospital discharge home on 08/09/2024. I surmise that patient has an acute viral pneumonia, despite BIOFIRE upper respiratory pathogen PCR panel testing negative (08/09/2024, 9:13am). Patient has no complaints of cough, wheeze, SOB, OLSON, or pleurisy on 08/08/2024 or on 08/09/2024. Patient was subsequently discharged back to his home on 08/09/2024. #hypotension - cf., admission BP 4/58 (08/07/2024, 8:30pm) and repeat BP 87/53 (08/08/2024, 12:00am). Due to acute dehydration. Hypotension RESOLVED with IV fluid rehydration utilizing 1 liter of 0.9% NS @ 999 mL/hr (08/07/2024, 8:50pm), followed by 2 liters of lactated Ringers @ 125 mL/hr (08/08/2024, 12:39am). Patient has a discharge BP 101/61 (08/09/2024, 11:41am). - in addition, patient received his home-scheduled metoprolol succinate 12.5mg PO qam (08/08/2024, 9:01am) while in [facility]; patient will continue this medication on hospital discharge home on 08/09/2024. #GEREMIAS - cf., admission creatinine 1.67 mg/dL (08/07/2024, 8:35pm). Due to renal hypoperfusion, which in turn, was due to hypotension and acute dehydration. GEREMIAS RESOLVED with IV fluid rehydration utilizing 1 liter of 0.9% NS @ 999 mL/hr (08/07/2024, 8:50pm), followed by 2 liters of lactated Ringers @ 125 mL/hr ( 08/08/2024, 12:39am). Patient has a discharge creatinine 1.14 mg/dL (08/09/2024, 8:01am). - cf., repeat creatinine 1.47 mg/dL (08/08/2024, 5:38am). - cf., discharge creatinine 1.14 mg/dL (08/09/2024, 8:01am). #fall - reported GLF, patient does not remember falling or losing consciousness. CT brain without contrast (08/07/2024, 8:28pm) negative for acute bleed, mass, or midline shift. Held off Eliquis 5mg PO bid while in [facility]. Patient will resume this home-scheduled medication on hospital discharge home on 08/09/2024. #Dementiaoriented to self only, appears to be patient's baseline Patient received his home-scheduled seroquel 25mg PO tid while in [facility]. Patient will resume this home-scheduled medication on hospital discharge home on 08/09/2024. #Hx VTEPE/DVT with recent admission. Holding Eliquis x 24 hours with above, has been on for over 1 month SCDs ordered #A-fibnew diagnosis during recent admission. Patient received his home- scheduled metoprolol succinate 12.5mg PO qam (08/08/2024, 9:01am) while in [facility]; patient will continue this rate-controlling medication on hospital discharge home on 08/09/2024. Held off Eliquis 5mg PO bid while in [facility]. Patient will resume this home-scheduled medication on hospital discharge home on 08/09/2024. #DMheld off home-scheduled metformin 500mg PO bid while in [facility]. Patient will resume this home-scheduled medication on hospital discharge home on 08/09/2024. #HFpEFmost recent EF 45 to 50%, RV systolic function moderately reduced, mild to moderate TR, pulmonary hypertension. Recommended to have repeat echo as outpatient when pneumonia resolved Patient received his home-scheduled metoprolol succinate 12.5mg PO qam (2024, 9:01am) while in [facility]; patient will continue this rate-controlling medication on hospital discharge home on 08/09/2024. #History of CVAcf., chronic lacunar CVA, no acute CVA (as reported on 06/12/2024, 3:59pm MRI brain with/without contrast). Continue secondary prophylaxis against CVD utilizing home-scheduled ASA 81mg PO daily and atorvastatin 10mg PO qhs. #tobacco usePatient received nicotine patch 14mg TD daily while in [facility]. Patient will not continue this hospital-started medicat ion on hospital discharge home on 08/09/2024. #COPDAsymptomatic on home-scheduled formoterol 20ug neb bid at home, at [facility]. Patient will continue this home-scheduled medication on hospital discharge home on 08/09/2024. #Alcohol use disorder - Patient received thiamine 100mg PO daily while in [facility]. Patient will continue this home-scheduled medication on hospital discharge home on 08/09/2024. VTE ppx: SCDs, holding Eliquis as above x 24 hours Dispo: med/telemetry Admission HPI Per Admitting Provider Patient is a 69-year-old male with a past medical history of HTN, HLD, type II DM, tobacco use, alcohol use disorder, dementia, recent PE/DVT. Patient recently had a prolonged hospitalization from 06/11 to 07/14 due to septic shock from actinobacter pneumonia, he was ventilator dependent requiring intubation and pressors in the ICU. He clinically improved and was discharged on Augmentin and Levaquin to be completed 07/28. Patient presented today from [facility] dementia unit after a ground-level fall. Imaging revealed persistent pneumonia. Patient is hypotensive and has an GEREMIAS. Patient seen at bedside. He is oriented to self only, it appears this is patient's baseline. He does not remember the fall however denies any pain. Unable to obtain further ROS. patient became agitated and ripped out IV's, still needs IV abx - IM Haldol ordered. Discharge Exam Constitutional General: Comfortable, cooperative, but incoherent. Wide awake and alert. Pleasantly confused/demented, but not lethargic or obtunded. Patient speaks in complete, fluent, and articulate, but nonsensical sentences without pause, interruption, cough, or wheeze. HEENT: Normocephalic, atraumatic. Pupils equally round and reactive to light. No nystagmus, gaze paresis, anisocoria, miosis, mydriasis, hyphema, scleral injection, conjunctivitis, or pterygium. No otorrhea. No pharyngeal erythema, edema, or discharge. Neck: Supple, no stridor, bruit, goiter, or hepato-jugular reflux. Jugular venous pressure is estimated to be 3 cm above the sternal angle of Irvin, which in turn, is 5 cm above the level of the right atrium; with jugular venous pressure estimated to be 8 cm, then, there is no jugular venous distention on 08/09/2024. Lymphatics: No cervical (anterior/posterior), supraclavicular, infraclavicular, axillary, epitrochlear, or inguinal adenopathy. Chest: Symmetric rise and fall with respirations. Non-tender to palpation. Lungs: Clear to auscultation and percussion. No audible expiratory wheeze, egophony, pectoriloquy, increase in tactile fremitus, or flatness/dullness to percussion at the bases. Heart: RRR. S1 and S2 noted. No S3 or S4 summation gallop. No tripartite friction rub. Grade II/ early systolic murmur @ LLSB without radiation to the carotids, axilla, or back, and which remains invariant in regards to the respiratory cycle. Abdomen: Soft, non-tender, non-distended. No rebound, guarding, Padilla's sign, or organomegaly. Bowel sounds auscultated in all 4 quadrants. Extremities: No clubbing, cyanosis, or edema in upper extremities or lower extremities bilaterally. 2+ pedal pulses bilaterally. Skin: No decubitus ulcer or enanthem. Genito-urinary: No urethral discharge. No bullock catheter. No purewick. Just a dry diaper. Neurology: Alert and oriented in regards to person and place, but not time or situation. No myoclonus, tremors, or tics. Psychiatry: No homicidal ideation. No suicidal ideation. No flat affect; smiles appropriately. Discharge Plan Discharge Items Patient Disposition: Home - Self-Care Reason For Visit: FALL, PNA Discharge Diagnosis: 1.Mechanical fall at home. 2.Acute viral PNA. 3.Chronic moderate-severe dementia without behavioral disturbances. Condition on Discharge: Serious Activity: Resume your previous activity Lifting: Gradually increase as tolerated Bathing: No limitations Exercise/Sports: Gradually increase as tolerated Driving/Machine Use: No limitations Weightbearing: Full weightbearing Non-emergency contact: Primary Care Provider Call non-emergency contact if: you have any medication questions Follow-up/Referrals: Yariel Morales DO [Primary Care Provider] - Diet: Heart Healthy Addtl Attending Provider Instructions: See your PCP Dr. Yariel Morales within 5-7 days of hospital discharge. Pending Studies at Discharge: No Stand-Alone Forms: My [facility] [employer], Smoking Cessation Medications and DC Order Prescriptions: Continued folic acid tablet 1 mg PO DAILY multivitamin Capsule 1 cap PO DAILY metformin 500 mg Tablet 500 mg PO BID formoterol fumarate [Perforomist] 20 mcg/2 mL Solution For Nebulization 20 mcg NEB BIDR Qty: 60 0RF nicotine 7 mg/24 hr Patch 24 Hour 1 patch transdermal QAM Qty: 14 0RF Eliquis 5 mg Tablet 5 mg PO BID Qty: 60 0RF quetiapine 25 mg Tablet 25 mg PO TID Qty: 90 0RF aspirin 81 mg Tablet,Delayed Release (Dr/Ec) 81 mg PO QAM Qty: 30 0RF magnesium oxide 400 mg (241.3 mg magnesium) Tablet 400 mg PO QAM Qty: 30 0RF budesonide 0.5 mg/2 mL Suspension For Nebulization 0.5 mg NEB BIDR Qty: 60 0RF thiamine HCl (vitamin B1) 100 mg capsule 100 mg PO DAILY Qty: 30 0RF atorvastatin 10 mg tablet 10 mg PO HS Qty: 30 0RF ferrous sulfate [Iron (ferrous sulfate)] 325 mg (65 mg iron) Tablet 325 mg PO DAILY Qty: 30 0RF metoprolol succinate 25 mg tablet extended release 24 hr 12.5 mg PO QAM Qty: 15 0RF Discontinued levofloxacin 750 mg Tablet 750 mg PO DAILY@1100 Qty: 14 0RF pantoprazole 40 mg Tablet,Delayed Release (Dr/Ec) 40 mg PO QAM Qty: 30 0RF Discharge Orders: Discharge Order (Routine); Ordered 08/09/24 Ordered By: Suhas Ceballos Admission Data Admit Date/Time: 08/07/24 22:28 Attending Provider: Suhas Ceballos Admit Provider: Yessica Kumari Primary Care Provider: Yariel Morales Other Providers: Yessica Kumari Hospital Stay Data Consultations 08/07/24 21:47 ED Decision to Admit Stat Diagnostic Imagining Performed 08/07/24 20:28 CT cervical spine wo con Stat CT head/brain wo con Stat 08/07/24 20:42 CT abd pelvis wo con Stat CT chest diagnostic wo con Stat Pending Results Patient Have Any Pending Studies at Discharge: No Discharge Instructions Given to Patient (Per Discharging Provider) See your PCP Dr. Yariel Morales within 5-7 days of hospital discharge. Total Time Total Time Spent Total Time Spent (In Minutes): 35 minutes. Of this time period, 19 minutes were spent in coordinating patient's discharge. Coding Level of Care Code 58698 INP/OBS DISCH >30 MIN Diagnoses Pneumonia J18.9 Hypoxia R09.02 Hypotension I95.9 GEREMIAS (acute kidney injury) N17.9 Fall W19.XXXA
[2024-08-09 14:01] VITALS: BP 106/63; PULSE 88
== END 2024-08-09 15:04 | disposition home or self-care (01) | DRG 194 ==
LOC: ED 20:20 → INTOOBSV 22:28 → 2W 22:28 → SUATTDRO 22:28 → 2W 08-08 00:57